=== PATIENT | female | born 1990 | race Caucasian/White ===

== ENCOUNTER 2019-08-21 21:22 | Outpatient (CLI) | payer BC, OTHER ==
[~2019-08-21] VITALS: Ht 172.7 cm; Wt 73.2 kg
[2019-08-21 21:30] VITALS: BP 124/78
[2019-08-21 21:51] LABS: MICROSCOPIC NOT IND
[2019-08-21 22:03] LABS: AMPHETAMINE SCREEN, URINE Negative (Negative); BARBITURATE SCREEN, URINE Negative (Negative); BENZODIAZEPINE SCREEN, URINE Negative (Negative); CANNABINOID SCREEN, URINE Negative (Negative); COCAINE SCREEN, URINE Negative (Negative); METHADONE SCREEN, URINE Negative (Negative); OPIATE SCREEN, URINE Negative (Negative)
== END 2019-08-22 | disposition home or self-care (01) ==
LOC: LDOP 21:22
PROVIDERS: ATTEND Obstetrics & Gynecology
DX: O26.893 Other specified pregnancy related conditions, third trimester (principal); R10.31 Right lower quadrant pain; Z3A.32 32 weeks gestation of pregnancy
CPT/HCPCS: 59025; 80307; 81003; 87086; 99201; G0463

== ENCOUNTER 2019-08-22 00:11 | Emergency (ER) | payer BC, OTHER ==
[~2019-08-22] VITALS: Ht 172.7 cm; Wt 80.1 kg
[2019-08-22 00:44] LABS: BASOPHILS # (AUTO) 0.02 x10^3/uL (0-0.1); BASOPHILS % (AUTO) 0 % (0-1); EOSINOPHILS % (AUTO) 2 % (1-7); LYMPHOCYTES # (AUTO) 1.96 x10^3/uL (1-3.4); LYMPHOCYTES % (AUTO) 14 % (22-44); MD NO; MEAN CORPUSCULAR HEMOGLOBIN 32.1 pg (27.0-34.8); MEAN CORPUSCULAR HGB CONC 33.5 g/dL (32.4-35.8); MEAN CORPUSCULAR VOLUME 95.8 fL (80-100); MEAN PLATELET VOLUME 8.6 fL (7.4-10.4); MONOCYTES # (AUTO) 0.76 x10^3/uL (0.2-0.8); MONOCYTES % (AUTO) 6 % (2-9); NEUTROPHILS # (AUTO) 10.58 x10^3/uL (1.8-6.8); NEUTROPHILS % (AUTO) 78 % (42-75); PLATELET COUNT 192 x10^3/uL (130-400); RED BLOOD COUNT 4.32 x10^6/uL (3.82-5.3); RED CELL DISTRIBUTION WIDTH 12.8 % (9.6-15.2)
[2019-08-22 00:55] LABS: ALANINE AMINOTRANSFERASE 24 U/L (12-78); ALBUMIN 2.7 g/dL (3.4-5.0); ANION GAP 7 mmol/L (5-15); CALCIUM 8.8 mg/dL (8.5-10.1); CHLORIDE 109 mmol/L (98-107); CREATININE 0.68 mg/dL (0.55-1.02)
[2019-08-22 00:57] LABS: ALKALINE PHOSPHATASE 85 U/L (45-117); BILIRUBIN,TOTAL 0.3 mg/dL (0.2-1.0); TOTAL PROTEIN 6.7 g/dL (6.4-8.2)
[2019-08-22 02:46] VITALS: BP 108/70
--- NOTE | 2019-08-22 02:47 | NUR ---
PT RESTING IN BED ON LEFT SIDE WITH AT BED SIDE. PT HAS NO NEEDS AT THIS TIME.
== END 2019-08-22 03:15 | disposition home or self-care (01) ==
LOC: ED 00:49
DX: O26.893 Other specified pregnancy related conditions, third trimester (principal); N13.30 Unspecified hydronephrosis; R10.31 Right lower quadrant pain; R10.12 Left upper quadrant pain; Z3A.32 32 weeks gestation of pregnancy
CPT/HCPCS: 36415; 72195; 74181; 80053; 83690; 85025; 99284